=== PATIENT | male | born 1950 | race Caucasian/White ===

== ENCOUNTER 2016-12-27 14:58 | Inpatient (IN) | payer OTHER ==
[~2016-12-27] VITALS: Ht 185.4 cm; Wt 110.6 kg
--- NOTE | ~2016-12-27 | CR71 ---
[facility] A Service of [facility] & [facility] RADIOLOGY TEXT RESULTS PATIENT: NILSON ONTIVEROS LOCATION: [facility] 571-01 : 51 UNIT #: [id number] AGE: [address]: Vipul Pearson MD SEX: M ORDER DR: [id number] [facility] [address]. [place], [place] [address] [id number] MR#: [id number] Acc #: [id number] NAME: NILSON ONTIVEROS : 1950 SEX: M STUDY DATE/TIME: 12/27/2016 15:22 UNIT: [facility] ROOM: [facility] STUDY DESCRIPTION: CR Chest Single View Attending Physician: Yolie Belle M.D. Ordering Physician: Abdiel Samaniego M.D. Primary Care Physician: Sudhir Wallace A.P.R.N. MEDICAL IMAGING REPORT This report is preliminary unless electronic signature is present EXAM Portable chest, 12/27/2016. HISTORY 66-year-old male with altered mental status today after overdose on various medications. History of essential hypertension. Coronary artery disease. Diabetes. COMPARISON Chest, 04/24/2016. FINDINGS Frontal chest demonstrates clear lungs. No pleural effusion or pneumothorax. Heart size and mediastinum are normal. Pulmonary vasculature normal. IMPRESSION No acute cardiopulmonary findings. Dictated by... Cj Schmidt M.D. THIS IS AN ELECTRONICALLY VERIFIED REPORT Cj Schmidt M.D. at 12/28/2016 3:11 PM LINWOOD/ariadne TD: 12/28/2016 00:11 JOB #: [id number] MEDICAL IMAGING REPORT Page 1 of 1 COPY
--- NOTE | ~2016-12-27 | EKG ---
PATIENT: NILSON ONTIVEROS UNIT #: [id number] Ventricular Rate: 71 BPM Atrial Rate: 71 BPM P-R Interval: 170 ms QRS Duration: 92 ms Q-T Interval: 402 ms QTC Calculation(Bezet): 436 ms P Beaufort: 14 degrees Calculated R Beaufort: -33 degrees Calculated T Beaufort: 7 degrees Diagnosis Line: Normal sinus rhythm Diagnosis Line: Left axis deviation Diagnosis Line: Abnormal ECG Diagnosis Line: When compared with ECG of 26-APR-2016 05:59, Diagnosis Line: No significant change was found Diagnosis Line: Confirmed by KIMBERLY DELUNA MD ([id number]) on Diagnosis Line: 12/30/2016 10:47:38 AM INTERPRETING MD: MIKIE RAMOS
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
--- NOTE | ~2016-12-27 | DS ---
Unit #: [id number] #: [id number] Patient: NILSON ONTIVEROS [id number] [address] [address] [id number] I MR#: [id number] NAME: NILSON ONTIVEROS ROOM: 57 Age: 66 Sex: M Admission Date: 12/27/2016 : 1950 Discharge Date: 12/28/2016 Attending Physician: Vipul Pearson M.D. Primary Care Physician: Sudhir Wallace A.P.R.N. DISCHARGE SUMMARY PRIMARY DIAGNOSIS 1. Suicide attempt with pill overdose. SECONDARY DIAGNOSES 1. Hypoglycemia secondary to number one. 2. Hypotension secondary to number one. HOSPITAL COURSE The patient was admitted to the hospital and stated on IV fluids and had his home medications held. He had some initial leukocytosis which was trending downward. He had no radiologic evidence, nor did he have any symptoms, nor did he have any signs of infection after evaluation. It appears the leukocytosis was secondary to stress response as the patient was found with low blood pressure and low glucose related to his suicide attempt. He is chronically on pain medication, which will likely need to continue at 10 mg of Lortab 5 times a day. This was confirmed by his CURTIS. He had previously been prescribed gabapentin by Dr. Obregon, but he is at least three weeks overdue for a new prescription and so at this time it appears that he probably is not compliant with this and we will not continue the gabapentin. The patient's hypoglycemia and hypotension improved, but at this time I would recommend continuing to hold some of the patient's home medications, including hydrochlorothiazide at 25 mg, lisinopril at 40 mg and his glipizide XL at 5 mg. These could be restarted in the next few days depending on his blood pressures and blood sugars. DISPOSITION [facility]. DISCHARGE STATUS Stable. DISCHARGE ACTIVITY Ad daphney. DIET Diabetic, low-sodium diet. For additional secondary diagnoses please see the history and physical. The patient has a complicated chronic medical history. DISCHARGE MEDICATIONS 1. Vitamin D2 50,000 units p.o. once weekly. 2. Imdur ER 30 mg p.o. daily. Unit #: [id number] #: [id number] Patient: NILSON ONTIVEROS 3. Synthroid 25 mcg p.o. daily. 4. Prilosec 20 mg p.o. daily. 5. Hydrocodone with Tylenol 10/325 mg 1 tablet p.o. 5 times a day. 6. Aspirin 325 mg p.o. daily. 7. Zocor 20 mg p.o. daily. 8. Coreg 6.25 mg p.o. b.i.d. 9. Nicotine patch 21 mg transdermally once daily. 10. Zyrtec 10 mg p.o. at nighttime. 11. Januvia 100 mg p.o. daily. 12. Metformin 1000 mg p.o. b.i.d. 13. Celexa 40 mg p.o. daily. Dictated by... Vipul Pearson M.D. FLYOD/yovany TD: 12/28/2016 13:12 JOB #: [id number] DISCHARGE SUMMARY Page 1 of 1 X Vipul Pearson MD X DISCHARGE SUMMARY
[~2016-12-27 14:58] MED LIST: ACETAMINOPHEN PO; ALBUTEROL17 GM INH; ALPRAZOLAM PO; ASPIRIN81 M2 PO; ATENOLOL PO; ATENOLOL50 MG PO; BAYER ASPIRIN325 M1 PO; CELEXA PO; CITALOPRAM HBR40 MG PO; CLINORIL PO; CLONIDINE HCL0.1 MG PO; COREG PO; COREG6.25 MG PO; DEPAKOTE PO; DIABETA5 M1 PO; FLEXERIL PO; FLEXERIL10 M1 PO; FLEXERIL10 MG PO; FLOMAX0.4 M1 PO; GABAPENTIN300 MG PO; GABAPENTIN600 MG PO; GABAPENTIN800 MG PO; GLIBURIDE PO; HCTZ PO; HYDROCHLOROTHIA25 MG PO; HYDROCODON-ACE1 EAC4 PO; IMDUR-ER30 M1 PO; IMDUR-ER30 MG PO; JANUVIA PO; JANUVIA100 MG PO; KETOPROFEN PO; LEVOTHYROXINE25 MCG PO; LISINOPRIL PO; LISINOPRIL2.5 MG PO; LISINOPRIL20 MG PO; LOPID600 MG PO; LORTAB 10-5001 EACH PO; LORTAB 10/500 T1 TAB PO; LYRICA50 MG PO; METFORMIN HCL850 MG PO; METOPROLOL TAR25 MG PO; METOPROLOL TART25 MG PO; MICRONASE5 M1 PO; MICRONASE5 M2 PO; MIRALAX17 GM PO; MOBIC PO; NEURONTIN PO; NITROGYLCERIN SUBLINGUAL; NORCO 10-325 TA1 TAB PO; NORCO 10/325 TA1 TAB PO; PAXIL PO; PERPHENAZINE8 MG PO; PHENERGAN25 M1 PO; PHENERGAN25 MG PO; PRILOSEC PO; PRILOSEC20 MG PO; PRINIVIL40 MG PO; PROTONIX PO; SEROQUEL PO; SIMVASTATIN20 MG PO; SYNTHROID25 MCG PO; TIROSINT25 MCG PO; VENTOLIN5 MG/ML IH; VIAGRA PO; VICODIN 5/500 T1 TAB PO; VICODIN PO; VIT D2 PO; VITAMIN D22000 UNIT PO; VITAMIN D250000 UNIT PO; XANAX1 MG PO; ZESTRIL2.5 MG PO; ZESTRIL40 MG PO; ZOCOR PO; ZOCOR20 MG PO; ZYRTEC10 M2 PO; [UNRECOGNIZED DRUG - REMARK]
[2016-12-27] MEDS ORDERED: GLIPIZIDE ER10 MG PO (15:03)
[2016-12-27] MEDS ORDERED: PATIENT'S PHARMACY (15:03)
[2016-12-27] MEDS ORDERED: JANUVIA PO (15:04)
[2016-12-27] MEDS ORDERED: ZOCOR PO (15:04)
[2016-12-27] MEDS ORDERED: LISINOPRIL PO (15:04)
[2016-12-27] MEDS ORDERED: HYDROCHLOROTHIA25 MG PO (15:04)
[2016-12-27] MEDS ORDERED: ZYRTEC10 M2 PO (15:04)
[2016-12-27] MEDS ORDERED: METFORMIN PO (15:04)
[2016-12-27] MEDS ORDERED: NEURONTIN800 MG PO (15:04)
[2016-12-27] MEDS ORDERED: SYNTHROID25 MCG PO (15:05)
[2016-12-27] MEDS ORDERED: CITALOPRAM HBR40 MG PO (15:05)
[2016-12-27] MEDS ORDERED: COREG6.25 M1 PO (15:05)
[2016-12-27] MEDS ORDERED: IMDUR PO (15:05)
[2016-12-27] MEDS ORDERED: VITAMIN D250000 UNIT PO (15:05)
[2016-12-27] MEDS ORDERED: HYDROCODON-ACE1 EAC5 PO (15:06)
[2016-12-27] MEDS ORDERED: PRILOSEC PO (15:20)
[2016-12-27] MEDS ORDERED: ASPIR-TRIN325 MG PO (15:20)
[2016-12-27 15:26] LABS: BASOPHIL# 0.1 X10e3 (0-0.3); BASOPHIL% 0.4 % (0-2.5); EOSINOPHIL# 0.5 X10e3 (0-0.7); EOSINOPHIL% 2.8 % (0.0-7.0); HEMATOCRIT 43.9 % (38.0-50.0); LYMPHOCYTE# 3.2 X10e3 (1.0-3.5); LYMPHOCYTE% 16.5 % (17.0-45.0); MEAN CORPUSCULAR HEMOGLOBIN 30.5 PG (28-34); MEAN CORPUSCULAR HGB CONC 34.2 g/dL (30-36); MEAN PLATELET VOLUME 7.5 FL (6.5-11.5); MONOCYTE# 1.6 X10e3 (0-1.0); MONOCYTE% 8.2 % (3.0-12.0); NEUTROPHIL# 13.9 X10e3 (1.5-7.1); NEUTROPHIL% 72.1 % (40-75); PLATELET COUNT 299 X10e3 (140-420); RED BLOOD COUNT 4.93 X10e (3.90-5.60); RED CELL DISTRIBUTION WIDTH 15.1 % (11.0-15.5); WHITE BLOOD COUNT 19.3 X10e3 (4.0-10.5)
[2016-12-27 15:39] LABS: DIFF IND YES
[2016-12-27 15:41] LABS: POC - CKMB <1.0 ng/mL (0.0-7.9); POC - TROPONIN <0.05 ng/mL (<=0.05)
[2016-12-27 15:48] LABS: PLATELET ESTIMATE NORMAL (NORMAL)
[2016-12-27 15:52] LABS: ALBUMIN SERUM 4.5 g/dL (3.5-5.0); ALKALINE PHOSPHATASE 46 U/L (32-92); ALT (SGPT) 22 U/L (10-40); AST (SGOT) 24 U/L (10-42); BILIRUBIN,TOTAL 0.6 mg/dL (0.2-2.0); BLOOD UREA NITROGEN 11 mg/dL (9-23); CALCIUM SERUM 10.1 mg/dL (8.4-10.2); CARBON DIOXIDE 28 mmol/L (22-31); CHLORIDE 100 mmol/L (100-111); GLOM FILT RATE Estimated 78.6 mL/min (>60); POTASSIUM 4.4 mmol/L (3.5-5.1); SALICYLATE <4.0 mg/dL; SODIUM 139 mmol/L (135-145)
[2016-12-27 15:56] LABS: ACETAMINOPHEN <10 ug/mL; ALCOHOL BLOOD <5 mg/dL (0); GLUCOSE FASTING 49 mg/dL (70-110)
[2016-12-27 18:45] LABS: POC - CKMB <1.0 ng/mL (0.0-7.9); POC - TROPONIN <0.05 ng/mL (<=0.05)
[2016-12-28 07:42] LABS: BASOPHIL# 0.2 X10e3 (0-0.3); BASOPHIL% 1.1 % (0-2.5); EOSINOPHIL# 0.7 X10e3 (0-0.7); EOSINOPHIL% 4.1 % (0.0-7.0); HEMOGLOBIN 13.4 gm/dL (13.0-16.0); LYMPHOCYTE# 2.7 X10e3 (1.0-3.5); MEAN CELL VOLUME 90.3 FL (83-96); MEAN CORPUSCULAR HEMOGLOBIN 30.3 PG (28-34); MEAN CORPUSCULAR HGB CONC 33.6 g/dL (30-36); MEAN PLATELET VOLUME 7.6 FL (6.5-11.5); MONOCYTE# 1.2 X10e3 (0-1.0); MONOCYTE% 7.5 % (3.0-12.0); NEUTROPHIL# 11.9 X10e3 (1.5-7.1); NEUTROPHIL% 71.3 % (40-75); PLATELET COUNT 242 X10e3 (140-420); RED BLOOD COUNT 4.43 X10e (3.90-5.60); RED CELL DISTRIBUTION WIDTH 14.9 % (11.0-15.5); WHITE BLOOD COUNT 16.6 X10e3 (4.0-10.5)
[2016-12-28 07:46] LABS: DIFF IND NO
[2016-12-28 08:30] LABS: CALCIUM SERUM 8.6 mg/dL (8.4-10.2); GLOM FILT RATE Estimated 78.6 mL/min (>60); POTASSIUM 4.5 mmol/L (3.5-5.1)
[2016-12-28 09:18] LABS: AMPHETAMINE NEG (NEG); BARBITURATES NEG (NEG); BENZODIAZEPINES POS (NEG); COCAINE NEG (NEG); MARIJUANA NEG (NEG); OPIATES NEG (NEG); TRICYCLIC ANTIDEPRESSANTS NEG (NEG); U METHADONE NEG (NEG)
[2017-01-11] MEDS ORDERED: TRAZODONE PO (08:54)
== END 2016-12-28 19:04 | DRG 918 ==
LOC: CED 14:58 → CEDOF 17:00 → C5C 17:00 → CED 17:35 → CEDOF 17:35 → C5C 20:39 → CEDOF 20:39 → C5C 20:39
PROVIDERS: Emergency Medicine; Internal Medicine
DX: T46.4X2A Poisoning by angiotensin-converting-enzyme inhibitors, intentional self-harm, initial encounter (principal); E09.649 Drug or chemical induced diabetes mellitus with hypoglycemia without coma; E11.40 Type 2 diabetes mellitus with diabetic neuropathy, unspecified; F33.2 Major depressive disorder, recurrent severe without psychotic features; T50.2X2A Poisoning by carbonic-anhydrase inhibitors, benzothiadiazides and other diuretics, intentional self-harm, initial encounter; T38.3X2A Poisoning by insulin and oral hypoglycemic [antidiabetic] drugs, intentional self-harm, initial encounter; I95.2 Hypotension due to drugs; I25.10 Atherosclerotic heart disease of native coronary artery without angina pectoris; I10 Essential (primary) hypertension; E78.5 Hyperlipidemia, unspecified; G89.29 Other chronic pain; K21.9 Gastro-esophageal reflux disease without esophagitis; N40.0 Benign prostatic hyperplasia without lower urinary tract symptoms; E03.9 Hypothyroidism, unspecified; F17.200 Nicotine dependence, unspecified, uncomplicated; Z79.84 Long term (current) use of oral hypoglycemic drugs; Z79.82 Long term (current) use of aspirin
CPT/HCPCS: 71010; 80048; 80053; 80307; 82553; 82947; 84484; 85025; 93005; 94760; 96361; 96374; 96375; 99291; G0480; J1815; J2310; J2405

== ENCOUNTER 2016-12-28 11:48 | Inpatient (IN) | payer OTHER ==
[~2016-12-28] VITALS: Ht 182.9 cm; Wt 124.7 kg
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
--- NOTE | ~2016-12-28 | HP ---
Unit #: [id number] #: [id number] Patient: ADEN ONTIVEROS [id number] [facility] [address] [place] [address] [id number] I MR#: [id number] NAME: ADEN ONTIVEROS ROOM: P254 Age: 66 Sex: M Admission Date: 12/28/2016 : 1950 Attending Physician: Mati Garcia M.D. Admitting Physician: Mati Garcia M.D. Primary Care Physician: Sudhir Wallace A.P.R.N. HISTORY AND PHYSICAL Aden is a 66 year old admitted to [address] [place] [address] with depression and after a polypharmacy suicide attempt. He was admitted to [facility] on 12/27/16 and when medically stable transferred to [facility] for psychiatric care. Patient was seen and H and P dated 12/27/16 was reviewed. This is current. No changes. Please see H and P dated 12/27/16. Dictated by... Bre Solano P.A.-C. for Belem Ashford/alexy TD: 12/29/2016 15:54 JOB #: [id number] HISTORY AND PHYSICAL Page 1 of 1 X Bre Solano HISTORY AND PHYSICAL
--- NOTE | ~2016-12-28 | PN ---
Unit #: [id number] #: [id number] Patient: ADEN ONTIVEROS [id number] [facility] [address] [place] [address] [id number] I MR#: [id number] NAME: ADEN ONTIVEROS ROOM: P254 Age: 66 Sex: M Admission Date: 12/28/2016 : 1950 Attending Physician: Mati Garcia M.D. Admitting Physician: Mati Garcia M.D. Primary Care Physician: Tyra Blake PROGRESS NOTES DATE OF SERVICE: 12/31/2016 DISCUSSION Aden is a 66-year-old male, seen on 12/31/2016. The patient interviewed, chart reviewed, and obtained information from nursing staff. The patient was compliant, cooperative, isolative, flat affect. The patient reports mood is getting better, compliant with medication, sleeping good, but still isolative, guarded, flat affect. REVIEW OF SYSTEMS Complete review of systems is unremarkable. MENTAL STATUS EXAMINATION General appearance, the patient dressed casually. Attention span and concentration, fair. Oriented in time, place, and person. Mood and affect, labile. Speech, monotone. Thought process, concrete. The patient denied any thoughts of harming self or others, but sad, depressed, withdrawn, isolative, passive SI. Recent and remote memory, poor. Insight and judgment, poor. DIAGNOSIS Major depressive disorder, recurrent, severe. ASSESSMENT AND PLAN Advised to continue with current medication and therapeutic protocol. If needed, consider further adjustment of medication. Dictated by... Belem Bogsg/roxy TD: 01/03/2017 01:51 JOB #: [id number] Unit #: [id number] #: [id number] Patient: ADEN ONTIVEROS BONNIEANNA PROGRESS NOTES Page 1 of 1 X Mati Garcia MD PROGRESS NOTE
--- NOTE | ~2016-12-28 | PN ---
Unit #: [id number] #: [id number] Patient: ADEN AVINA [id number] [facility] [address] [place] [address] [id number] I MR#: [id number] NAME: ADEN AVINA ROOM: P254 Age: 66 Sex: M Admission Date: 12/28/2016 : 1950 Attending Physician: Mati Garcia M.D. Admitting Physician: Mati Garcia M.D. Primary Care Physician: Tyra Blake PROGRESS NOTES DATE 12/30/2016 DISCUSSION Aden Avina is a 66-year-old male seen on 12/30/2016. Patient interviewed. Chart reviewed. Obtained information from nursing staff. Patient continues to report feeling sad, depressed, anxious. Reports medication is helping him. Still having some trouble sleeping. Complete review of system unremarkable. MENTAL STATUS EXAMINATION General appearance, patient dressed casually. Attention span, concentration fair. Oriented in time, place and person. Mood and affect labile. Speech monotone. Thought process concrete. Patient denied any thoughts of harming others but having suicidal ideation, guarded. Recent and remote memory poor. Insight and judgement poor. DIAGNOSIS Major depressive disorder, recurrent, severe. ASSESSMENT/PLAN Advised to continue with current medication and therapeutic protocol. If needed, consider further adjustment of medication. Dictated by... Belem Boggs/alexy TD: 12/31/2016 23:00 JOB #: [id number] Unit #: [id number] #: [id number] Patient: ADEN AVINA PROGRESS NOTES Page 1 of 1 X Mati Garcia MD PROGRESS NOTE
--- NOTE | ~2016-12-28 | DS ---
Unit #: [id number] #: [id number] Patient: NILSON ONTIVEROS [id number] [facility] [address] [place] [address] [id number] MR#: [id number] NAME: NILSON ONTIVEROS ROOM: [facility] Age: 66 Sex: M Admission Date: 12/28/2016 : 1950 Discharge Date: 01/02/2017 Attending Physician: Mati Garcia M.D. Primary Care Physician: Sudhir Wallace A.P.R.N. DISCHARGE SUMMARY REASON FOR ADMISSION Suicide attempt. DIAGNOSTIC STUDIES LABORATORY DATA: Unremarkable. HOSPITAL COURSE Patient was admitted to inpatient unit on 12/28/16 and discharged on 01/02/17. Patient was treated with group therapy, individual therapy, medication management. Patient was responsive to treatment, showed improvement. Subsequently, patient was discharged with a plan to follow up in outpatient program. DISCHARGE DIAGNOSES PSYCHIATRIC: Major depressive disorder, recurrent, severe, F33.2. SECONDARY DIAGNOSIS: Deferred. MEDICAL DIAGNOSIS: History of chronic pain, hypertension, diabetes, history of seizure. FOLLOWUP CARE Patient to follow up in outpatient clinic as per social media job titles. DISCHARGE MEDICATIONS 1. Celexa 40 mg daily for depression. 2. Desyrel 100 mg at bedtime for sleep. 3. Vistaril 25 mg t.i.d. for anxiety. CONDITION AT DISCHARGE Patient pleasant, cooperative. Denied any psychotic symptoms or any suicidal ideation. PROGNOSIS Guarded. DIET AND ACTIVITY As tolerated. Dictated by... Unit #: [id number] #: [id number] Patient: NILSON ONTIVEROS Belem Boggs/alexy TD: 01/05/2017 17:40 JOB #: [id number] DISCHARGE SUMMARY Page 1 of 1 X Mati Garcia MD X DISCHARGE SUMMARY
--- NOTE | ~2016-12-28 | PN ---
Unit #: [id number] #: [id number] Patient: ADEN AVINA [id number] [facility] [address] [place] [address] [id number] MR#: [id number] NAME: ADEN AVINA ROOM: P254 Age: 66 Sex: M Admission Date: 12/28/2016 : 1950 Attending Physician: Mati Garcia M.D. Admitting Physician: Mati Garcia M.D. Primary Care Physician: Tyra Blake PROGRESS NOTES DATE OF SERVICE 01/01/2017 DISCUSSION Aden Avina is a 66-year-old male seen on 01/01/2017. Patient interviewed, chart reviewed. Obtained information from nursing staff. Patient reports mood is getting better, decrease in anxiety, compliant and cooperative but still isolative, sad, dysphoric mood but denied any thoughts of harming self or others. Complete review of systems unremarkable. MENTAL STATUS EXAMINATION The patient dressed casually. Attention span and concentration fair. Oriented to time, place and person. Mood and affect sad, dysphoric but denied any thoughts of harming self or others. Recent and remote memory poor. Insight and judgement poor. DIAGNOSES Major depressive disorder recurrent severe. ASSESSMENT/PLAN Advise to continue with current medication and therapeutic protocol. If needed consider further adjustment of medication. Dictated by... Belem Boggs/rosemary TD: 01/03/2017 02:11 JOB #: [id number] Unit #: [id number] #: [id number] Patient: ADEN AVINA PROGRESS NOTES Page 1 of 1 X Mati Garcia MD PROGRESS NOTE
[~2016-12-28 11:48] MED LIST changes: +ASPIR-TRIN325 MG PO; +COREG6.25 M1 PO; +GLIPIZIDE ER10 MG PO; +HYDROCODON-ACE1 EAC5 PO; +IMDUR PO; +METFORMIN PO; +NEURONTIN800 MG PO; +PATIENT'S PHARMACY
[2017-01-11] MEDS ORDERED: TRAZODONE PO (08:54)
== END 2017-01-02 14:00 | disposition home or self-care (01) | DRG 885 ==
LOC: P2L 20:00
DX: F33.2 Major depressive disorder, recurrent severe without psychotic features (principal); E11.9 Type 2 diabetes mellitus without complications; I10 Essential (primary) hypertension; S90.121A Contusion of right lesser toe(s) without damage to nail, initial encounter; T14.91 Suicide attempt; G89.29 Other chronic pain; G40.909 Epilepsy, unspecified, not intractable, without status epilepticus
CPT/HCPCS: 82947